=== PATIENT | male | born 1985 | race African-American/Black ===

== ENCOUNTER 2023-06-04 11:35 | Emergency (ER) | payer MEDICAID ==
[~2023-06-04] VITALS: Ht 180.3 cm; Wt 81.0 kg
[2023-06-04 13:49] VITALS: O2SAT 100
[2023-06-04] MEDS: IBUPROFEN 600MG TABLET PO ONE (14:15)
[2023-06-04] MEDS: ONDANSETRON 4MG ODT PO ONE (14:15)
[2023-06-04 16:02] VITALS: BP 104/74; PULSE 92; RESP 18; TEMP 98.7
== END 2023-06-04 16:23 | disposition home or self-care (01) ==
LOC: ER 11:35
DX: B34.9 Viral infection, unspecified (principal)
CPT/HCPCS: 99283; Q0162; Z7610 ×3